=== PATIENT | male | born 1965 | race Caucasian/White ===

== ENCOUNTER 2016-07-20 08:44 | Emergency (ER) | payer OTHER ==
[~2016-07-20] VITALS: Ht 172.7 cm; Wt 72.6 kg
[2016-07-20 08:51] VITALS: BP 114/71
--- NOTE | 2016-07-20 08:58 | ED GENERAL ADULT ---
History of Present Illness General Chief Complaint: General Adult Stated Complaint: L SIDE RIB PAIN, FALL X 1WEEK Source: patient, family Exam Limitations: no limitations Vital Signs & Intake/Output Vital Signs & Intake/Output Vital Signs Date Time Temp Pulse Resp B/P B/P Pulse O2 O2 Flow FiO2 Mean Ox Delivery Rate 07/20 0851 97.5 80 18 114/71 99 Room Air Allergies Coded Allergies: NO KNOWN ALLERGIES (04/27/12) Triage Note: 50 Y/O MALE C/O L SIDED RIB PAIN X 1 WEEK; S/P FALL LAST SATURDAY. STATES HE FELL OFF LADDER, GOT HIMSELF UP AND CONTINUED HIS DAY. STATES PAIN IS IMPROVING BUT STILL HURTS. DENIES NOTING BRUISE TO AREA. DENIES OTHER INJURIES OR COMPLAINTS Triage Nurses Notes Reviewed? yes Onset: Gradual Duration: week(s): (1) Timing: no prior history Injury Environment: home Severity: moderate Severity Numbers: 7 Modifying Factors: Improves With: immobilization. Worsens With: movement. HPI: Patient is a 50-year-old male presenting to the emergency Department chief complaint of left-sided rib pain since 1 week ago. He was standing 3 steps up on a ladder when he fell backwards landing directly on his left ribs. No head injury or loss of consciousness. Denies any neck pain. He reports pain has been improving but still pretty painful so he wanted to come in to get things checked out. Denies shortness of breath. No palpitations. Denies any abdominal pain. No urinary incontinence or retention. No numbness or tingling. Denies any weakness. Has been taking Tylenol with some relief. (BENITO CASTILLO) Past History Travel History Traveled to [place] past 21 day No Medical History Any Pertinent Medical History? 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 No (BENITO CASTILLO) Review of Systems Review of Systems Constitutional: Reports: no symptoms. Comments Review of systems: See HPI, All other systems negative. Constitutional, no chills fever or weight loss HEENT: No visual changes no sore throat no congestion Cardiovascular: No chest pain ,palpitation , orthopnea or ankle swelling Skin, no jaundice no rashes Respiratory: No dyspnea cough sputum or hemoptysis GI: No nausea no vomiting : No dysuria No hematuria Muscle skeletal: no back pain, no neck pain, Neurologic: No numbness no confusion Psych: No stress anxiety or depression,. Heme/endocrine: No bruising no bleeding no polyuria or polydipsia Immunology: No splenectomy or history of AIDS (RAIN OGDEN,BENITO) Physical Exam Physical Exam General Appearance: well developed/nourished, no apparent distress, alert, awake , comfortable Comments: Well-developed well-nourished person in no acute distress HEENT: Pupils equally round and reactive to light and accommodation. Nose is atraumatic. Neck: Supple, no lymphadenopathy, normal range of motion without pain or tenderness, no C-spine tenderness range of motion. Back: Nontender Cardiovascular: Regular rate and rhythms no murmurs rubs or gallops, normal JVP Respiratory: Chest is tender to palpation over the lateral ribs. No respiratory distress.breath sounds clear to auscultation bilaterally Extremity: No edema, full range of motion of upper and lower extremities without difficulty or pain. Neuro: Alert oriented x3 Skin: No appreciable rash on exposed skin, skin is warm and dry. Psych: Mood and affect is normal, memory and judgment is normal. Core Measures ACS in differential dx? No CVA/TIA Diagnosis: No Severe Sepsis Present: No Septic Shock Present: No (BENITO CASTILLO) Progress Differential Diagnoses I considered the following diagnoses in my evaluation of the patient: Fracture, rib contusion, pneumothorax, pneumonia Plan of Care: Orders Procedure Date/time Status XRY-RIBS UNILATERAL-LEFT 07/21 851 Active Diagnostic Imaging: Viewed by Me: Radiology Read. Discussed w/RAD: Radiology Read. Radiology Impression: PATIENT: SONIA OLIVIER PRESENT AGE: 50 PATIENT ACCOUNT NO: [id number] : 67 LOCATION: [facility] [place] ORDERING PHYSICIAN: BENITO OGDEN SERVICE DATE: 07/20/16 EXAM TYPE: RAD - XRY-RIBS UNILATERAL-LEFT EXAMINATION: XR RIBS, LEFT CLINICAL INFORMATION: Pain after fall. Rule out rib fracture. COMPARISON: None TECHNIQUE: 2 views of the left ribs were obtained. FINDINGS: Lungs are clear. No consolidation, pneumothorax, or pleural effusion. The cardiomediastinal silhouette and pulmonary vasculature are normal. Right-sided pacemaker is seen with 2 contiguous, intact leads projecting over the expected location of the right atrium and right ventricular apex. There is a mildly displaced acute appearing left posterior 10th rib fracture.. IMPRESSION: Mildly displaced, acute appearing, left 10th rib fracture. No pneumothorax or hemothorax seen. Clear lungs. Pacemaker as described above. DICTATED BY: CAYDEN CORRALES MD DATE/TIME DICTATED:07/20/16920 BEATER WORKER HELPER:SHIMA DATE/TIME TRANSCRIBED:920 CONFIDENTIAL, DO NOT COPY WITHOUT APPROPRIATE AUTHORIZATION. < Electronically signed in Other Vendor System> SIGNED BY: CAYDEN CORRALES MD 07/20/16931 Initial ED EKG: none Comments: 07/20/2016 8:52:19 AM patient declined pain medication arrival. He'll the fracture to rule out fracture. He is tender on the lateral aspect of the left ribs. Approximately 8, 9 and 10. No ecchymosis. 07/20/2016 9:42:37 AM patient informed of x-ray results. There is a 10th rib fracture. Patient given Dr. Welch to follow-up with. Educated on signs and symptoms to return. (BENITO CASTILLO) Departure Departure Time of Disposition: 915 Disposition: HOME OR SELF CARE Condition: Stable Clinical Impression Primary Impression: Rib fracture Qualifiers: Encounter type: initial encounter Rib fracture type: single rib Fracture type: closed Laterality: left Qualified Code: S22.32XA - Fracture of one rib, left side, initial encounter for closed fracture Referrals: ALLYSON DE LA O MD (PCP/Family) NETO KEE,BERNARDINO Robles JR Additional Instructions: Follow-up with your primary care physician call to make an appointment. you were also given dr welch to follow up with as well. Take [id number] Motrin or Tylenol as directed to help with pain. Use incentive spirometer to take deep breaths. Return for worsening symptoms or concerns. Departure Forms: Customer Survey General Discharge Information (BENITO CASTILLO) PA/FUR POLISHER Co-Sign Statement Statement: ED Attending supervision documentation- [] I saw and evaluated the patient. I have also reviewed all the pertinent lab results and diagnostic results. I agree with the findings and the plan of care as documented in the PA's/FUR POLISHER's documentation. [X] I have reviewed the ED Record and agree with the PA's/FUR POLISHER's documentation. [] Additions or exceptions (if any) to the PAs/FUR POLISHER's note and plan are summarized below: [] (EDITH KEE,RICCO) Critical Care Note Critical Care Note Critical Care Time: non-applicable (BENITO CASTILLO)
--- NOTE | 2016-07-20 09:32 | RADIOLOGY REPORT ---
EXAMINATION: XR RIBS, LEFT CLINICAL INFORMATION: Pain after fall. Rule out rib fracture. COMPARISON: None TECHNIQUE: 2 views of the left ribs were obtained. FINDINGS: Lungs are clear. No consolidation, pneumothorax, or pleural effusion. The cardiomediastinal silhouette and pulmonary vasculature are normal. Right-sided pacemaker is seen with 2 contiguous, intact leads projecting over the expected location of the right atrium and right ventricular apex. There is a mildly displaced acute appearing left posterior 10th rib fracture.. IMPRESSION: Mildly displaced, acute appearing, left 10th rib fracture. No pneumothorax or hemothorax seen. Clear lungs. Pacemaker as described above.
== END 2016-07-20 09:52 ==
LOC: ERH 08:44
DX: S22.32XA Fracture of one rib, left side, initial encounter for closed fracture (principal); W11.XXXA Fall on and from ladder, initial encounter; Y92.9 Unspecified place or not applicable; Y93.9 Activity, unspecified
CPT/HCPCS: 71100-LT